=== PATIENT | female | born 1985 | race Caucasian/White ===

== ENCOUNTER 2017-09-01 21:40 | Emergency (ER) | payer MEDICAID ==
[2017-09-01] MEDS ORDERED: HYOSCYAMINE SULFATE ODT 0.125 MG TAB.SUBL SL ONE (21:58)
[2017-09-01] MEDS ORDERED: KETOROLAC 30 MG/ML VIAL IVP ONE (21:58)
[2017-09-01] MEDS ORDERED: 0.9 % SODIUM CHLORIDE 1000ML 1,000 ML IV SCH (22:00)
--- NOTE | 2017-09-01 22:02 | Emergency Department Record ---
History of Present Illness - General Chief Complaint: Abdominal Pain Stated Complaint: ADOMINAL PAIN 5X DAYS ON AND OFF\ Time Seen by Provider: 09/01/17 21:42 Source: Patient Mode of Arrival: Ambulatory Limitations: No limitations - History of Present Illness Initial Comments: 32 yo female presents to ED for evaluation of 4-5 days of waxing and waning diffuse abdominal pain symptoms. Patient reports fevers/chills symptoms as well , denies nausea, vomiting, urinary symptoms. Patient reports that her son had similar symptoms 2 weeks ago, diagnosed with virus at that time. Patient denies health problems at her baseline, and denies previous abdominal surgeries. MD Complaint: Abdominal pain Onset/Timin -: Days(s) Location: Diffuse Severity: Moderate Severity scale (1-10): 7 Quality: Fullness Consistency: Constant Improves With: Nothing Worsens With: Eating Associated Symptoms: Nausea - Related Data LMP (females 10-50): Last week Patient : No Previous Rx's Medication Instructions Recorded Hyoscyamine Sulfate [Levsin-Sl] 0.25 mg SL Q8H PRN #20 tab.subl 09/02/17 Allergies Allergy/AdvReac Type Severity Reaction Status Date / Time codeine AdvReac VOMITING Verified 09/01/17 21:46 Travel Screening - Travel/Exposure Within Last 30 Days Have you traveled within the last 30 days?: No Review of Systems Constitutional: Reports: Chills, Fever. Denies: Malaise, Night sweats Eyes: Denies: Eye discharge, Eye pain ENT: Denies: Congestion, Ear pain, Epistaxis Respiratory: Denies: Cough, Dyspnea Cardiovascular: Denies: Chest pain, Dyspnea on exertion Endocrine: Denies: Fatigue, Heat or cold intolerance Gastrointestinal: Reports: Abdominal pain. Denies: Constipation, Nausea, Vomiting Genitourinary: Denies: Incontinence, Retention Musculoskeletal: Denies: Arthralgia, Back pain Skin: Denies: Bruising, Change in color Neurological: Denies: Abnormal gait, Confusion, Headache, Seizure Psychiatric: Denies: Anxiety Hematological/Lymphatic: Denies: Anemia, Blood Clots Past Medical History - SOCIAL HISTORY Smoking Status: Never smoker Alcohol Use: Occasional Drug Use: None - RESPIRATORY Hx Respiratory Disorders: No - CARDIOVASCULAR Hx Cardio Disorders: No - NEURO Hx Neuro Disorders: Yes Hx Headaches: Yes (hx of migraines) - GI Hx GI Disorders: No - Hx Genitourinary Disorders: No - ENDOCRINE Hx Endocrine Disorders: No - MUSCULOSKELETAL Hx Musculoskeletal Disorders: No - PSYCH Hx Psych Problems: No - HEMATOLOGY/ONCOLOGY Hx Hematology/Oncology Disorders: No Family Medical History Any Significant Family History?: No Physical Exam - General General Appearance: Alert, Oriented x3, Cooperative, Moderate distress Limitations: No limitations - Head Head exam: Atraumatic, Normocephalic, Normal inspection Head exam detail: negative: Abrasion, Contusion, Almaguer's sign, General tenderness, Hematoma, Laceration - Eye Eye exam: Normal appearance. negative: Conjunctival injection, Periorbital swelling, Periorbital tenderness, Scleral icterus - ENT Ear exam: negative: Auricular hematoma, Auricular trauma Nasal Exam: negative: Active bleeding, Discharge, Dried blood, Foreign body Mouth exam: negative: Drooling, Laceration, Muffled voice, Tongue elevation - Neck Neck exam: Normal inspection. negative: Meningismus, Tenderness - Respiratory Respiratory exam: Normal lung sounds bilaterally. negative: Rales, Respiratory distress, Rhonchi, Stridor - Cardiovascular Cardiovascular Exam: Regular rate, Normal rhythm, Normal heart sounds - GI/Abdominal GI/Abdominal exam: Soft, Tenderness (Moderate, diffuse TTP, no peritoneal signs are present on examination.). negative: Rebound, Rigid - Rectal Rectal exam: Deferred - exam: Deferred - Extremities Extremities exam: Normal inspection. negative: Calf tenderness, Pedal edema, Tenderness - Back Back exam: Denies: CVA tenderness (R), CVA tenderness (L) - Neurological Neurological exam: Alert, Normal gait, Oriented X3 - Psychiatric Psychiatric exam: Normal affect, Normal mood - Skin Skin exam: Normal color. negative: Abrasion Type of lesion: negative: abrasion Course Vital Signs 09/01/17 21:44 Temperature 97.6 F Pulse Rate 89 Respiratory 20 Rate Blood Pressure 116/105 Pulse Ox 100 - Reevaluation(s) Reevaluation #1: 09/01/17 22:40 Laboratory studies were reviewed and are grossly unremarkable for an acute process. UA pending. Reevaluation #2: 09/01/17 23:08 UA reviewed and appears unremarkable. Patient reassessed and reports that she is now pain-free. Reevaluation #3: 09/02/17 00:31 CT Abdomen and Pelvis: No acute process Patient was updated on all results, reports improvement in her symptoms with Levsin, and appears stable for discharge at this time. Medical Decision Making - Lab Data Result diagrams: 09/01/17 22:10 09/01/17 22:10 Disposition Disposition: Discharge Clinical Impression: Abdominal pain Qualifiers: Abdominal location: generalized Qualified Code(s): R10.84 - Generalized abdominal pain Disposition: Home, Self-Care Condition: (2) Stable Instructions: Abdominal Pain (ED) Additional Instructions: Return to ED if your symptoms worsen or if you have any concerns. Levsin as directed. Follow-up with your family doctor in 3-5 days as directed. Prescriptions: Hyoscyamine Sulfate [Levsin-Sl] 0.25 mg SL Q8H PRN #20 tab.subl PRN Reason: Abdominal Pain Forms: Patient Portal Access Time of Disposition: 00:33 Quality - Quality Measures Quality Measures: N/A - Blood Pressure Screening Does Patient Have Any of the Following: No Blood Pressure Classification: Hypertensive Reading Systolic Measurement: 116 Diastolic Measurement: 105 Screening for High Blood Pressure: < First Hypertensive BP, F/U Documented > [ [id number]] First Hypertensive Follow-up Interventions: Referral to alternative/primary care provider.
[2017-09-01 22:17] LABS: BASO % 0.4 % (0-6); EOS % 0.4 % (0-6); HEMATOCRIT 44.2 % (35.0-47.0); LYMPH % 21.3 % (16-45); MEAN CELL VOLUME 88.4 fl (81-97); MEAN CORPUSCULAR HGB CONC 33.9 g/dl (32-36); MEAN PLATELET VOLUME 10.4 fl (7.4-10.4); MONO % 10.9 % (0-9); PLATELET COUNT 275 K/uL (130-400); RED CELL DISTRIBUTION WIDTH 12.3 % (11.5-14.5); WHITE BLOOD COUNT W/O DIFF 8.2 K/uL (4.2-12.2)
[2017-09-01 22:32] LABS: ALBUMIN 4.7 g/dL (4.0-5.0); ALKALINE PHOSPHATASE 48 U/L (35-104); ALT/SGPT 8 U/L (<33); AST/SGOT 12 U/L (10.0-35.0)
[2017-09-01 22:33] LABS: BLOOD UREA NITROGEN 7 mg/dL (6-20); CREATININE 0.6 mg/dL (0.5-0.9); EST GLOMERULAR FILTRATION RATE > 60 mL/min; GLUCOSE,RANDOM 105 mg/dL (74-109); LIPASE 22 U/L (13-60); TOTAL PROTEIN 7.1 g/dL (6.6-8.7)
[2017-09-01 22:48] LABS: HCG,QUALITATIVE URINE NEGATIVE (NEGATIVE); URINE APPEARANCE CLEAR; URINE BILIRUBIN NEGATIVE (NEGATIVE); URINE BLOOD NEGATIVE (NEGATIVE); URINE COLOR YELLOW; URINE GLUCOSE (UA) NEGATIVE (NEGATIVE); URINE KETONE 40 mg/dL (NEGATIVE); URINE LEUKOCYTE ESTERASE NEGATIVE (NEGATIVE); URINE NITRITE NEGATIVE (NEGATIVE); URINE PROTEIN NEGATIVE (NEGATIVE); URINE UROBILINOGEN 0.2 E.U./dL (0.20 - 1.00)
[2017-09-02] MEDS ORDERED: DICYCLOMINE HCL 10 MG CAPSULE PO ONE (00:10)
--- NOTE | 2017-09-02 15:14 | CT SCAN REPORT ---
EXAM: EMERGENCY CT OF THE ABDOMEN AND PELVIS WITH CONTRAST HISTORY: GENERALIZED ABDOMINAL PAIN FOR FIVE DAYS. TECHNIQUE: Axial CT scan of the abdomen and pelvis was performed following the intravenous administration of 100 ml of Omnipaque 300 as the IV contrast. No oral contrast was utilized at the referring physician's request. A preliminary report was provided by [facility]. Comparison: None. FINDINGS: No calcified gallstones are seen within the gallbladder. No definite hepatic, splenic, adrenal, pancreatic or renal mass identified. Evaluation of the bowel is quite limited without oral contrast. No definite appendicitis identified. The lung bases appear clear. No free intraperitoneal air or free intraperitoneal fluid identified. Thoracolumbar curve convexed to the left. IMPRESSION: 1. THORACOLUMBAR CURVE CONVEXED TO THE LEFT. 2. THE REMAINDER OF THE CT OF THE ABDOMEN AND PELVIS APPEARS ESSENTIALLY NEGATIVE. LIMITED EVALUATION OF THE BOWEL INCLUDING THE APPENDIX, HOWEVER, WITHOUT ORAL CONTRAST. JOB NUMBER: [id number] MTDD
== END 2017-09-02 00:42 | disposition home or self-care (01) ==
LOC: ER 21:40
DX: R10.84 Generalized abdominal pain (principal); R11.0 Nausea
CPT/HCPCS: 74177; 80053; 81003; 81025; 83690; 85025; 96374; 99284; J1885; J7030